=== PATIENT | male | born 1960 | race Caucasian/White ===

== ENCOUNTER 2017-08-28 12:48 | Day surgery (SDC) | payer BC ==
[2017-08-28] MEDS ORDERED: PROPOFOL 40 ML (15:45)
[2017-08-28] MEDS ORDERED: LIDOCAINE 2% (SDV) 5 ML INJ (15:45)
[2017-08-28] MEDS ORDERED: MIDAZOLAM 1 MG/ML 2 ML INJ (15:46)
== END 2017-08-28 18:51 | disposition home or self-care (01) ==
LOC: GIL 12:48
DX: Z12.11 Encounter for screening for malignant neoplasm of colon (principal); D12.2 Benign neoplasm of ascending colon; K62.1 Rectal polyp; K62.9 Disease of anus and rectum, unspecified; K26.9 Duodenal ulcer, unspecified as acute or chronic, without hemorrhage or perforation; K29.70 Gastritis, unspecified, without bleeding
CPT/HCPCS: 43239; 88305; 88312